=== PATIENT | male | born 1995 | race Two or more races ===

== ENCOUNTER → 2025-06-01 | Outpatient (CLI) | payer MEDICAID, SELFPAY ==
--- NOTE | 2025-06-01 13:07 | XR_ITS ---
EXAMINATION: Thyroid sonography complete TECHNIQUE: Grayscale sonographic images thyroid lobes Date and time: June 01, 2025, 1325 hours INDICATIONS: Fatigue weight loss, abnormal thyroid function on laboratory examination performed 1 week ago. FINDINGS: Right thyroid 8.0 cm Left thyroid 7.0 cm Heterogeneous echogenicity throughout the thyroid lobes although no discrete nodules IMPRESSION: Significant thyromegaly Consider correlation with oral I-123 thyroid uptake and scan
== END | disposition home or self-care (01) ==
PROVIDERS: PCP Registered Nurse Community Health; Referring Provider Registered Nurse Community Health; Visit Provider Registered Nurse Community Health
DX: E01.0 Iodine-deficiency related diffuse (endemic) goiter (principal)
CPT/HCPCS: 76536